=== PATIENT | male | born 1950 | race Caucasian/White ===

== ENCOUNTER 2023-09-09 08:01 | Emergency (ER) | payer OTHER, MEDICARE, BC ==
[~2023-09-09] VITALS: Ht 175.3 cm; Wt 81.8 kg
[2023-09-09] MEDS: ondansetron 4mg rapidly disintigrating tab PO ONE (10:06)
[2023-09-09] MEDS: HYDROcodone/acetaminophen 5mg/325mg tablet PO ONE (10:06)
[2023-09-09 10:39] VITALS: BP 128/89; PULSE 65; RESP 14; TEMP 98.2; O2SAT 97
== END 2023-09-09 10:52 | disposition home or self-care (01) ==
LOC: ER 08:01
DX: S90.02XA Contusion of left ankle, initial encounter (principal); S90.32XA Contusion of left foot, initial encounter; V89.2XXA Person injured in unspecified motor-vehicle accident, traffic, initial encounter; Y93.89 Activity, other specified; Y92.89 Other specified places as the place of occurrence of the external cause; Y99.8 Other external cause status
CPT/HCPCS: 73610; 73630; 99284; L4360

== ENCOUNTER 2023-09-15 09:56 | Outpatient (CLI) | payer MEDICARE, BC | END 2023-09-15 23:59 | disposition home or self-care (01) | LOC: RAD 09:56 | PROVIDERS: ATTEND Physician Assistant | DX: S92.022A Displaced fracture of anterior process of left calcaneus, initial encounter for closed fracture (principal); M79.672 Pain in left foot; M19.072 Primary osteoarthritis, left ankle and foot; M79.89 Other specified soft tissue disorders; I70.8 Atherosclerosis of other arteries; X58.XXXA Exposure to other specified factors, initial encounter; Y93.89 Activity, other specified; Y92.89 Other specified places as the place of occurrence of the external cause; Y99.8 Other external cause status | CPT/HCPCS: 72131; 73700 ==